=== PATIENT | male | born 1955 | race Hispanic/Latino ===

== ENCOUNTER 2018-02-02 09:44 | Emergency (ER) | payer BC ==
[2018-02-02 09:58] VITALS: BMI 29.0
[2018-02-02] MEDS ORDERED: Vancomycin 1gm in NS 250ml 1 GM/250 ML BAG IVPB STA (11:26)
[2018-02-02] MEDS ORDERED: Piperacillin/Tazobact 3.375 gm 100 ML IVPB STA (11:26)
[2018-02-02] MEDS ORDERED: Sodium Chloride 0.9% 1,000 ML IV STA (11:26)
--- NOTE | 2018-02-02 11:43 | CP.PCM.CON ---
History of Present Illness - History of Present Illness History of Present Illness: Surgery Consult note. Dr. Sanchez 62yo M with PMHx of HLD, HTN, CAD s/p 1 card stent, here for evaluation of left groin pain. Patient states that pain started about 4 days ago, gradually became worse. 2 days ago, he tried to "pop the boil" and was able to express some purulent material. He thought it was due to an ingrown hair. States that this morning, he noted some increased erythema and pain around the site. At home, he has tried using OTC topical Boil Ease and Topical Neosporin without any relief. Denies similar symptoms in the past. Denies any F/C. No N/V/D. No Abd pain. No CP/SOB. No Urinary complaints. He is currently visiting [place], [place] for work and is set to return home to [place] on February 14, 2018. Currently taking ASA 81mg daily. PMH: HTN, HLD, CAD s/p 1 cardiac stent 10+ years ago PSH: Cardiac Stent 10+ yrs ago, Bilateral inguinal hernia repair as infant Family Hx: non-contributory Social Hx: Current 1ppd smoker for 20+ years; Denies ETOH use; Denies illicit drugs. Lives in [place], returns on February 14, 2018 Allergy: Alcohol, PCN Review of Systems - Review of Systems All systems: reviewed and no additional remarkable complaints except - Constitutional Constitutional: absent: Chills, Fever - Cardiovascular Cardiovascular: absent: Chest Pain, Dyspnea - Respiratory Respiratory: absent: Cough, Dyspnea - Gastrointestinal Gastrointestinal: absent: Abdominal Pain, Diarrhea, Nausea, Vomiting - Genitourinary Genitourinary: absent: Difficulty Urinating, Dysuria - Musculoskeletal Musculoskeletal: absent: Back Pain - Integumentary Additional comments: left groin boil Past Patient History - Infectious Disease Hx of Infectious Diseases: None - Past Medical History & Family History Past Medical History?: Yes Past Family History: Reviewed and not pertinent - Past Social History Smoking Status: Heavy Smoker > 10 Cigarettes Daily Alcohol: None Drugs: Denies Home Situation {Lives}: Other (Lives in [place]. Visiting until February 14, 2018) - CARDIAC Hx Hypercholesterolemia: Yes Hx Hypertension: Yes Other/Comment: 1 cardiac stent - PSYCHIATRIC Hx Substance Use: No - ANESTHESIA Hx Anesthesia Reactions: No Hx Malignant Hyperthermia: No Meds Allergies/Adverse Reactions: Allergies Allergy/AdvReac Type Severity Reaction Status Date / Time alcohol Allergy ANAPHYLAXIS Verified 02/02/18 10:03 Penicillins Allergy RASH Verified 02/02/18 10:03 - Medications Medications: Current Medications Sodium Chloride (Sodium Chloride 0.9%) 1,000 mls @ 999 mls/hr IV .Q1H1M STA Stop: 02/02/18 12:26 Vancomycin HCl (Vancomycin 1gm) 1 gm in 250 mls @ 167 mls/hr IVPB STAT STA PRN Reason: Protocol Stop: 02/02/18 12:55 Clindamycin Phosphate 900 mg/ (Sodium Chloride) 106 mls @ 106 mls/hr IVPB STAT STA PRN Reason: Protocol Stop: 02/02/18 12:30 Physical Exam - Constitutional Appears: Well, Non-toxic, No Acute Distress - Head Exam Head Exam: ATRAUMATIC, NORMAL INSPECTION, NORMOCEPHALIC - Eye Exam Eye Exam: EOMI, Normal appearance - ENT Exam ENT Exam: Mucous Membranes Moist - Respiratory Exam Respiratory Exam: NORMAL BREATHING PATTERN. absent: Accessory Muscle Use, Respiratory Distress - Cardiovascular Exam Cardiovascular Exam: RRR. absent: JVD - GI/Abdominal Exam GI & Abdominal Exam: Soft. absent: Distended, Guarding, Rebound, Rigid, Tenderness - Extremities Exam Extremities exam: Positive for: normal inspection. Negative for: calf tenderness - Back Exam Back exam: NORMAL INSPECTION - Neurological Exam Neurological exam: Alert, Oriented x3 - Psychiatric Exam Psychiatric exam: Normal Affect, Normal Mood - Skin Skin Exam: Dry, Erythema, Intact, Normal Color, Warm Additional comments: left groin, suprapubic area: ~2cm x 3cm raised, fluctuant, erythema and indurated area. Results - Vital Signs Recent Vital Signs: Last Vital Signs Temp 98.5 F 02/02/18 09:45 Pulse 60 02/02/18 09:45 Resp 16 02/02/18 09:45 BP 126/83 02/02/18 09:45 Pulse Ox 96 02/02/18 09:45 - Labs Result Diagrams: 02/02/18 11:55 Assessment & Plan - Assessment and Plan (Free Text) Assessment: 62yo M with left groin/suprapubic abscess Plan: - Bedside I&D today. Will send wound cultures - f/u labs, blood cxs - IV ABX for 1 dose. Then may transition to oral Abx - Patient will need to follow up with Dr. Sanchez in office next week. (Call for appointment) - Leave packing in place. Replace Dry gauze dressing as needed Further recs as per Dr. Daniel Shields PGY1 surgery pager: [phone]
--- NOTE | 2018-02-02 11:58 | ED PDOC ---
Arrival/HPI - General Chief Complaint: Abnormal Skin Integrity Time Seen by Provider: 02/02/18 11:03 Historian: Patient - History of Present Illness Narrative History of Present Illness (Text): 02/02/18 11:22 A 62 year old male, whose past medical history includes CAD with stents (takes medications), presents to the emergency department complaining of cellulitis to left-side groin. Patient reports having shaved groin before traveling to [place], [place] from [facility]. Patient suspected he had ingrown hair in the shaved region and began inspecting, resulting in having cellulitis. Patient mentions no other complaints at this time. Also, patient mentions having no medical history of diabetes. No PMD Past Medical History - Provider Review Nursing Documentation Reviewed: Yes - Infectious Disease Hx of Infectious Diseases: None - Cardiac Hx Hypertension: Yes Other/Comment: 1 cardiac stent - Psychiatric Hx Substance Use: No - Anesthesia Hx Anesthesia Reactions: No Hx Malignant Hyperthermia: No Family/Social History - Physician Review Nursing Documentation Reviewed: Yes Family/Social History: No Known Family HX Smoking Status: Current Some Days Smoker Hx Alcohol Use: No Hx Substance Use: No Allergies/Home Meds Allergies/Adverse Reactions: Allergies alcohol Allergy (Verified 02/02/18 10:03) ANAPHYLAXIS Penicillins Allergy (Verified 02/02/18 10:03) RASH Review of Systems - Physician Review All systems were reviewed & negative as marked: Yes - Review of Systems Genitourinary Male: Other (left-side groin cellulitis) Skin: absent: Pruritis Physical Exam Vital Signs Temp Pulse Resp BP Pulse Ox 02/02/18 09:45 98.5 F 60 16 126/83 96 Temperature: Afebrile Blood Pressure: Normal Pulse: Regular Respiratory Rate: Normal Appearance: Positive for: Well-Appearing Pain Distress: None Mental Status: Positive for: Alert and Oriented X 3 - Systems Exam Genitourinary Male: Present: Other (6 cm x 4 cm oval cellulitis to left-side groin area; fluctuance underneath; no palpable lymph nodes) Medical Decision Making ED Course and Treatment: 02/02/18 11:26 Impression: 62 year old male with left-side groin cellulitis. Physical exam shows 6 cm x 4 cm oval cellulitis to groin region. Plan: -- Surgical Consult -- Labs -- Urinalysis -- Venous Blood Gas -- Blood Culture -- Urine Culture -- Wound Culture -- Reassess and disposition Progress Notes: - Lab Interpretations Lab Results: 02/02/18 11:55 02/02/18 11:55 Lab Results 02/02/18 11:55: Sodium 141, Chloride 103, Potassium 4.4, Carbon Dioxide 26, Anion Gap 17, BUN 16, Creatinine 0.9, Est GFR ( Amer) > 60, Est GFR (Non- Af Amer) > 60, Random Glucose 98, Calcium 9.7, Total Bilirubin 0.4, AST 32, ALT 41, Alkaline Phosphatase 45, Total Protein 7.4, Albumin 4.4, Globulin 3.0, Albumin/Globulin Ratio 1.5 02/02/18 11:55: pO2 36, VBG pH 7.36, VBG pCO2 49.0, VBG HCO3 27.7, VBG Total CO2 29.2 H, VBG O2 Sat (Calc) 75.9 H, VBG Base Excess 1.5, VBG Potassium 4.3, Sodium 136.0, Chloride 103.0, Glucose 98, Lactate 1.2, FiO2 21.0, Venous Blood Potassium 4.3 02/02/18 11:55: PT 11.6, INR 1.01 02/02/18 11:55: WBC 15.2 H, RBC 4.93, Hgb 16.0, Hct 45.4, MCV 92.1, MCH 32.5, MCHC 35.2, RDW 13.3, Plt Count 244, MPV 10.3, Gran % 78.1 H, Lymph % (Auto) 13.9 L, [place] % (Auto) 7.0 H, Eos % (Auto) 0.9 L, Baso % (Auto) 0.1, Gran # 11.89 H, Lymph # (Auto) 2.1, [place] # (Auto) 1.1 H, Eos # (Auto) 0.1, Baso # (Auto ) 0.02 - Medication Orders Current Medication Orders: Discontinued Medications Sodium Chloride (Sodium Chloride 0.9%) 1,000 mls @ 999 mls/hr IV .Q1H1M STA Stop: 02/02/18 12:26 Last Admin: 02/02/18 11:56 Dose: 999 mls/hr eMAR Start Stop Document 02/02/18 11:56 EWO (Rec: 02/02/18 11:56 EWO [id number]) Intravenous Solution Start Date 02/02/18 Start Time 11:56 End Date 02/02/18 End time 12:56 Total Infusion Time 60 Vancomycin HCl (Vancomycin 1gm) 1 gm in 250 mls @ 167 mls/hr IVPB STAT STA PRN Reason: Protocol Stop: 02/02/18 12:55 Last Admin: 02/02/18 12:39 Dose: 167 mls/hr eMAR Start Stop Document 02/02/18 12:39 EWO (Rec: 02/02/18 12:40 EWO [id number]) Intravenous Solution Start Date 02/02/18 Start Time 12:39 End Date 02/02/18 End time 14:39 Total Infusion Time 120 Clindamycin Phosphate 900 mg/ (Sodium Chloride) 106 mls @ 106 mls/hr IVPB STAT STA PRN Reason: Protocol Stop: 02/02/18 12:30 Last Admin: 02/02/18 12:05 Dose: 106 mls/hr eMAR Start Stop Document 02/02/18 12:05 EWO (Rec: 02/02/18 12:05 EWO [id number]) Intravenous Solution Start Date 02/02/18 Start Time 12:05 End Date 02/02/18 End time 13:05 Total Infusion Time 60 Lidocaine HCl (Lidocaine 1% (20ml)) 1 ml IJ STAT STA Stop: 02/02/18 12:04 Last Admin: 02/02/18 12:40 Dose: 20 ml - Scribe Statement The provider has reviewed the documentation as recorded by the Tigre Obando Provider Scribe Attestation: All medical record entries made by the Dominiqueibjuan were at my direction and personally dictated by me. I have reviewed the chart and agree that the record accurately reflects my personal performance of the history, physical exam, medical decision making, and the department course for this patient. I have also personally directed, reviewed, and agree with the discharge instructions and disposition. Disposition/Present on Arrival - Present on Arrival Any Indicators Present on Arrival: No History of DVT/PE: No History of Uncontrolled Diabetes: No Urinary Catheter: No History of Decub. Ulcer: No History Surgical Site Infection Following: None - Disposition Have Diagnosis and Disposition been Completed?: Yes Diagnosis: Abscess of groin, left, Cellulitis of groin, left Disposition: HOME/ ROUTINE Disposition Time: 13:09 Patient Plan: Discharge Condition: GOOD Discharge Instructions (ExitCare): Cellulitis (ED), Boil (DC), Cellulitis ( Skin Infection), Adult (DC) Additional Instructions: Mr Kline- Sorrandall this happened to you over the holiday. Return to us if worse. Follow up with Dr. Sanchez. Cleocin is four times a day. Best- Dr. Brandon Shipley Referrals: Phu Sanchez MD [Staff Provider] - Follow up with primary Forms: [facility] ([place])
[2018-02-02 12:00] LABS: VENOUS BLOOD GAS BASE EXCESS 1.5 mmol/L (0.0-2.0); VENOUS BLOOD GAS PO2 36 mm/Hg (30-55); VENOUS BLOOD PH 7.36 (7.32-7.43)
[2018-02-02] MEDS ORDERED: Lidocaine 1% Inj (20ml) IJ STA (12:03)
[2018-02-02 12:04] LABS: BASO # 0.02 K/mm3 (0.0-2.0); BASO % 0.1 % (0.0-3.0); EOS # 0.1 (0.0-0.7); EOS % 0.9 % (1.5-5.0); GRAN # 11.89 (1.4-6.5); GRAN % 78.1 % (50.0-68.0); LYMPH # 2.1 (1.2-3.4); LYMPH % 13.9 % (22.0-35.0); MEAN CELL VOLUME 92.1 fl (80.0-105.0); MEAN CORPUSCULAR HEMOGLOBIN 32.5 pg (25.0-35.0); MEAN CORPUSCULAR HGB CONC 35.2 g/dl (31.0-37.0); MEAN PLATELET VOLUME 10.3 fl (7.0-11.0); MONO # 1.1 (0.1-0.6); RBC 4.93 10^6/uL (3.5-6.1); RED CELL DISTRIBUTION WIDTH 13.3 % (11.5-14.5); WHITE BLOOD COUNT 15.2 10^3/ul (4.5-11.0)
[2018-02-02 12:10] LABS: ALB/GLOB RATIO 1.5 (1.1-1.8); ALBUMIN 4.4 g/dL (3.0-4.8); ALT/SGPT 41 U/L (7-56); AST/SGOT 32 U/L (17-59); BLOOD UREA NITROGEN 16 mg/dL (7-21); CALCIUM 9.7 mg/dL (8.4-10.5); GFR AFRICAN-AMERICAN > 60; GFR NON-AFRICAN AMERICAN > 60
[2018-02-02 12:23] LABS: INR 1.01 (0.93-1.08); PROTHROMBIN TIME 11.6 SECONDS (9.4-12.5)
--- NOTE | 2018-02-02 13:49 | PCM.SURG1 ---
Surgeon's Initial Post Op Note - Surgeon's Notes Surgeon: Dr. Sanchez Refinery Technician: Cornelius PGY1 Type of Anesthesia: Local Pre-Operative Diagnosis: left groin/suprapubic abscess Operative Findings: Written consent obtained and placed on chart. Patient prepped with betadine and draped in the usual sterile fashion. Approximately 6cc of 1% Lidocaine was used for local anesthesia. approx 1.5cm Single transverse incision was made over the most fluctuant area. Bloody, purulent discharge expressed from the wound. Wound culture was sent to the lab for analysis. Small april clamp was used to explore and break up any loculations. Approximately 5cc of bloody, purulent material expressed from the wound. Copious amount of sterile saline used to cleanse inside the abscess cavity. The abscess cavity was then packed with 1/4in iodoform packing. Sterile gauze used to dress the wound. Patient tolerated the procedure well. No immediate complications noted. Post-Operative Diagnosis: same Operation Performed: Bedside Incision and Drainage of left groin/suprapubic area Specimen/Specimens Removed: wound culture Estimated Blood Loss: EBL {In ML}: 3 Blood Products Given: N/A Drains Used: No Drains Post-Op Condition: Good Date of Surgery/Procedure: 02/02/18 Time of Surgery/Procedure: 13:50
[2018-02-02 15:09] VITALS: BP 132/79; PULSE 72; RESP 18; TEMP 98.6
[2018-02-02 15:11] VITALS: O2SAT 99
== END 2018-02-02 15:10 | disposition home or self-care (01) ==
LOC: ED 09:44
DX: L02.214 Cutaneous abscess of groin (principal); L03.314 Cellulitis of groin; E78.00 Pure hypercholesterolemia, unspecified; I10 Essential (primary) hypertension; F17.210 Nicotine dependence, cigarettes, uncomplicated; I25.10 Atherosclerotic heart disease of native coronary artery without angina pectoris
CPT/HCPCS: 10060; 80053; 82803; 85025; 85610; 87040; 87070; 87181; 96365; 96366; 96367; 99283; J7030